=== PATIENT | male | born 1990 | race Caucasian/White ===

== ENCOUNTER 2021-06-04 21:48 | Emergency (ER) | payer OTHER ==
[~2021-06-04] VITALS: Ht 177.8 cm; Wt 70.0 kg
[2021-06-04] MEDS ORDERED: BACITRACIN ZINC OINT UDPKT TOP ONE (22:45)
[2021-06-05] MEDS ORDERED: IBUP-2029 MT (00:03)
[2021-06-05 00:45] VITALS: BP 135/81
== END 2021-06-05 00:47 | disposition home or self-care (01) ==
LOC: ER 21:48
DX: S62.211A Bennett's fracture, right hand, initial encounter for closed fracture (principal); V49.49XA Driver injured in collision with other motor vehicles in traffic accident, initial encounter; Y93.89 Activity, other specified; Y92.89 Other specified places as the place of occurrence of the external cause; Y99.8 Other external cause status
CPT/HCPCS: 29125; 73100; 73120; 99284